=== PATIENT | male | born 1940 | race Caucasian/White ===

== ENCOUNTER 2025-02-04 09:01 | Day surgery (SDC) | payer OTHER, BC ==
[2025-02-03 14:28] VITALS: BMI 26.5
[2025-02-04] MEDS: CIPROFLOXACIN 0.3% EYE DROPS 5 ML BOTTLE ONE (09:30)
[2025-02-04] MEDS: TROPICAMIDE 1% 3 ML EYE DROPS ONE (09:30)
[2025-02-04] MEDS: CYCLOPENTOLATE 2% OPHTH SOLN 2 ML BOTTLE ONE (09:30)
[2025-02-04] MEDS: PHENYLEPHRINE 2.5% OPTHALMIC DROP 2ML BOTTLE ONE (09:30)
[2025-02-04] MEDS ORDERED: LIDOCAINE 1% P/F 10 MG/ML VIAL ONE (09:41)
[2025-02-04] MEDS ORDERED: EPINEPHrine 1:1000 P/F - 1 MG/ML AMP ONE (09:41)
[2025-02-04] MEDS ORDERED: BSS (NA/CA/MG/K) BALANCED SALT SOLUTION OPHTH SOLN 15 ML BOTTLE ONE (09:42)
[2025-02-04] MEDS ORDERED: TETRACAINE 0.5% OPHTH SOLN 2 ML BOTTLE ONE (09:42)
[2025-02-04] MEDS ORDERED: NEO/POLYMYX B SULF/DEXAMETH OPHTHALMIC 5ML BOTTLE ONE (09:42)
[2025-02-04] MEDS ORDERED: CARBACHOL 0.01% INTRA-OCULAR 1.5 ML VIAL ONE (09:42)
[2025-02-04] MEDS ORDERED: MIDAZOLAM HCL 2 MG/2 ML SINGLE DOSE VIAL ONE (11:06)
[2025-02-04 12:40] VITALS: RESP 18; TEMP 98
[2025-02-04 12:45] VITALS: BP 125/80; PULSE 67
== END 2025-02-04 12:20 | disposition home or self-care (01) ==
LOC: FASU 09:01
PROVIDERS: ATTEND Ophthalmology
PROC: 08RK3JZ Replacement of Left Lens with Synthetic Substitute, Percutaneous Approach (ICD-10-PCS; principal; 2025-02-04 11:13)
DX: H26.8 Other specified cataract (principal)

== ENCOUNTER 2025-03-25 11:12 | Day surgery (SDC) | payer OTHER, BC ==
[2025-03-23 13:42] VITALS: BMI 26.5
[2025-03-25] MEDS ORDERED: MIDAZOLAM HCL 2 MG/2 ML SINGLE DOSE VIAL ONE (11:49)
[2025-03-25 11:51] VITALS: RESP 16
[2025-03-25] MEDS: TROPICAMIDE 1% 3 ML EYE DROPS ONE (11:55)
[2025-03-25] MEDS: PHENYLEPHRINE 2.5% OPTHALMIC DROP 2ML BOTTLE ONE (11:55)
[2025-03-25] MEDS: CYCLOPENTOLATE 2% OPHTH SOLN 2 ML BOTTLE ONE (11:55)
[2025-03-25] MEDS: CIPROFLOXACIN 0.3% EYE DROPS 5 ML BOTTLE ONE (11:55)
[2025-03-25] MEDS ORDERED: CARBACHOL 0.01% INTRA-OCULAR 1.5 ML VIAL ONE (12:03)
[2025-03-25] MEDS ORDERED: LIDOCAINE 1% P/F 10 MG/ML VIAL ONE (12:03)
[2025-03-25] MEDS ORDERED: NEO/POLYMYX B SULF/DEXAMETH OPHTHALMIC 5ML BOTTLE ONE (12:03)
[2025-03-25] MEDS ORDERED: TETRACAINE 0.5% OPHTH SOLN 2 ML BOTTLE ONE (12:03)
[2025-03-25] MEDS ORDERED: BSS (NA/CA/MG/K) BALANCED SALT SOLUTION OPHTH SOLN 15 ML BOTTLE ONE (12:03)
[2025-03-25 13:56] VITALS: TEMP 97.4
[2025-03-25 14:17] VITALS: BP 147/76; PULSE 62
== END 2025-03-25 14:20 | disposition home or self-care (01) ==
LOC: FASU 11:12
PROVIDERS: ATTEND Ophthalmology
PROC: 08RK3JZ Replacement of Left Lens with Synthetic Substitute, Percutaneous Approach (ICD-10-PCS; principal; 2025-03-25 13:22)
DX: H26.8 Other specified cataract (principal)
CPT/HCPCS: 66984; V2632